=== PATIENT | male | born 2005 | race Two or more races ===

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

== ENCOUNTER 2024-11-30 16:30 | Emergency (ER) | payer MEDICAID ==
[~2024-11-30] VITALS: Ht 165.1 cm; Wt 80.0 kg
[2024-11-30 16:40] VITALS: BP 141/105; PULSE 91; RESP 18; O2SAT 100
[2024-11-30 17:17] LABS: BILIRUBIN,URINE NEGATIVE (Neg); CLARITY,URINE CLEAR (Clear); COLOR,URINE YELLOW (Yellow); GLUCOSE, URINE NEGATIVE (Neg); KETONES,URINE NEGATIVE (Neg); LEUKOCYTE ESTERASE ,URINE NEGATIVE (Neg); NITRITES, URINE NEGATIVE (Neg); OCCULT BLOOD,URINE NEGATIVE (Neg); PH,URINE 7.5 (4.8-8.0); PROTEIN,URINE 30 mg/dl (Neg); UROBILINOGEN,URINE 0.2 E.U/dL (0.2-1.0)
[2024-11-30 17:22] LABS: UA COLLECTION TYPE CLN CATCH MIDSTREAM
[2024-11-30 17:27] LABS: AMORPHOUS PHOSPHATES 1+; BACTERIA,URINE NONE SEEN /HPF (Neg); RBC,URINE NONE SEEN /HPF (0-2); SQUAMOUS EPITHELIAL CELL,UR FEW /LPF (FEW); WBC,URINE NONE SEEN /HPF (0-4)
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
[2024-11-30] MEDS ORDERED: VALA100031 PO (17:49)
[2024-11-30] MEDS ORDERED: SULF1TAB49 PO (17:49)
[2024-11-30] MEDS: valacyclovir 500mg tablet PO STA (17:51)
[2024-11-30] MEDS: sulfamethoxazole/trimethoprim DS (800/160mg) tablet PO STA (17:51)
[2024-11-30 18:31] VITALS: TEMP 98.5
== END 2024-11-30 18:32 | disposition home or self-care (01) ==
LOC: ER 16:31
DX: A60.02 Herpesviral infection of other male genital organs (principal); A64 Unspecified sexually transmitted disease; L73.9 Follicular disorder, unspecified
CPT/HCPCS: 81001; 99283